=== PATIENT | male | born 1995 | race Caucasian/White ===

== ENCOUNTER 2017-06-15 04:49 | Emergency (ER) | payer SELFPAY ==
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
[2017-06-15 06:26] VITALS: BP 114/59
== END 2017-06-15 06:00 | disposition home or self-care (01) ==
LOC: FB.ED 04:49
DX: M25.532 Pain in left wrist (principal); R51 Headache; R53.83 Other fatigue; Y04.8XXA Assault by other bodily force, initial encounter
CPT/HCPCS: 99282; 99283

== ENCOUNTER 2019-06-01 05:51 | Emergency (ER) | payer OTHER ==
[2019-06-01 06:15] VITALS: BP 158/79; PULSE 64
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
== END 2019-06-01 08:20 | disposition home or self-care (01) ==
LOC: FB.ED 05:51
DX: F43.10 Post-traumatic stress disorder, unspecified (principal); F17.210 Nicotine dependence, cigarettes, uncomplicated
CPT/HCPCS: 99284

== ENCOUNTER 2020-02-17 00:50 | Emergency (ER) | payer SELFPAY ==
[2020-02-17 01:05] VITALS: PULSE 90
[2020-02-17] MEDS ORDERED: Lidocaine 2% Viscous Solution 15 ML Cup PO ONE (01:20)
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
[2020-02-18 00:59] VITALS: BP 144/97
== END 2020-02-17 01:47 | disposition home or self-care (01) ==
LOC: FB.ED 00:50
DX: K02.9 Dental caries, unspecified (principal); F41.9 Anxiety disorder, unspecified; F32.9 Major depressive disorder, single episode, unspecified; Z79.899 Other long term (current) drug therapy
CPT/HCPCS: 99282; A9270

== ENCOUNTER 2020-02-17 23:34 | Emergency (ER) | payer SELFPAY ==
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
[2020-02-18 01:00] VITALS: BP 150/76; PULSE 90
--- NOTE | 2020-02-20 10:57 | CR ---
INDICATION: Left hand pain with swelling. LEFT HAND: Three views of the left hand revealed some deformity at the distal metaphysis of the 5th metacarpal, likely on the basis of a previous boxer's type fracture. Marked soft tissue swelling is noted overlying the dorsum of the hand at the level of the metacarpals-metacarpophalangeal joints. An acute fracture, dislocation, or other definite bone or joint abnormality was not identified. If occult bony abnormality is suspected clinically, reexamination in 10 to 14 days and/or nuclear bone imaging may be helpful. MTDD
== END 2020-02-18 00:42 | disposition home or self-care (01) ==
LOC: FB.ED 23:34
DX: S62.367A Nondisplaced fracture of neck of fifth metacarpal bone, left hand, initial encounter for closed fracture (principal); F41.9 Anxiety disorder, unspecified; F32.9 Major depressive disorder, single episode, unspecified; F17.210 Nicotine dependence, cigarettes, uncomplicated; F17.290 Nicotine dependence, other tobacco product, uncomplicated; Z79.899 Other long term (current) drug therapy; W22.8XXA Striking against or struck by other objects, initial encounter
CPT/HCPCS: 29125; 73130-LT; 99283; 99283-25

== ENCOUNTER 2020-04-09 19:20 | Emergency (ER) | payer SELFPAY ==
[2020-04-09] MEDS ORDERED: Lidocaine 2% Viscous Solution 15 ML Cup PO ONE (19:47)
--- NOTE | 2020-04-09 19:53 | EDM.PDOC ---
ED HPI GENERAL MEDICAL PROBLEM - General Chief Complaint: General Stated Complaint: TOOTH PAIN Time Seen by Provider: 04/09/20 19:30 Source of Information: Reports: Patient History Limitations: Reports: No Limitations - History of Present Illness INITIAL COMMENTS - FREE TEXT/NARRATIVE: Patient presented to the ED because of a chronic dental pain. He was seen in the ED several times in the past and was told to follow up with the dentist but he didn't. 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 Lower L jaw Pain Score (Numeric/FACES): 10 - Related Data Allergies Allergy/AdvReac Type Severity Reaction Status Date / Time No Known Allergies Allergy Verified 04/09/20 19:30 Home Meds: Home Meds Escitalopram [Lexapro] 20 mg PO DAILY 02/17/20 [History] Ibuprofen 800 mg PO TID PRN #30 tablet 02/17/20 [Rx] QUEtiapine [SEROquel] 50 mg PO BEDTIME 02/17/20 [History] hydrOXYzine pamoate [Hydroxyzine Pamoate] 25 mg PO TID PRN 02/17/20 [History] Ibuprofen 800 mg PO TID PRN #30 tablet 04/09/20 [Rx] Lidocaine 2% [Xylocaine 2% Viscous] 2 ml PO ASDIRECTED #60 ml 04/09/20 [Rx] Past Medical History - Past Health History Medical/Surgical History: Denies Medical/Surgical History Musculoskeletal History: Reports: Fracture Other Musculoskeletal History: hx fx L hand Psychiatric History: Reports: Anxiety, Depression, Suicide Attempt, Suicidal Ideation Other Psychiatric History: patient states that he has a lot of anger issues that he hit people. states that he is not from here and just moved here from [place]. - Past Surgical History Other Surgical History Comment: No previous surgeries. Social & Family History - Family History Family Medical History: Noncontributory - Tobacco Use Smoking Status *Q: Current Every Day Smoker Years of Tobacco use: 9 Packs/Tins Daily: 0.4 - Caffeine Use Caffeine Use: Reports: Coffee, Energy Drinks, Soda Other Caffeine Use: BC powder daily - Alcohol Use Days Per Week of Alcohol Use: 5 Number of Drinks Per Day: 5 Total Drinks Per Week: 25 - Recreational Drug Use Recreational Drug Use: No - Living Situation & Occupation Occupation: Employed (States he works at [employer] in [place]) ED ROS GENERAL - Review of Systems Review Of Systems: See Below Constitutional: Reports: No Symptoms HEENT: Reports: No Symptoms Respiratory: Reports: No Symptoms Cardiovascular: Reports: No Symptoms Endocrine: Reports: No Symptoms GI/Abdominal: Reports: No Symptoms : Reports: No Symptoms Musculoskeletal: Reports: No Symptoms Skin: Reports: No Symptoms Neurological: Reports: No Symptoms ED EXAM, GENERAL - Physical Exam Exam: See Below Exam Limited By: No Limitations General Appearance: Alert, No Apparent Distress Eye Exam: Bilateral Eye: PERRL Nose: Normal Inspection, Normal Mucosa Throat/Mouth: Normal Inspection Head: Atraumatic, Normocephalic Neck: Normal Inspection, Supple Respiratory/Chest: No Respiratory Distress Cardiovascular: Normal Peripheral Pulses, Regular Rate, Rhythm, No Edema GI/Abdominal: Normal Bowel Sounds, Soft, Non-Tender Back Exam: Normal Inspection, Full Range of Motion Extremities: Normal Inspection, Normal Range of Motion Neurological: Alert, Oriented, CN II-XII Intact Psychiatric: Normal Affect Course - Vital Signs Text/Narrative:: Viscous lidocaine Tramadol 100 mg po x1 Tylenol 1000 mg po x1 Last Recorded V/S: Last Vital Signs Temp 36.9 C 04/09/20 19:25 Pulse 67 04/09/20 20:17 Resp 18 04/09/20 20:17 BP 139/91 H 04/09/20 20:17 Pulse Ox 98 04/09/20 20:17 - Orders/Labs/Meds Meds: Medications Discontinued Medications Generic Name Dose Route Start Last Admin Trade Name Steph PRN Reason Stop Dose Admin Acetaminophen 1,000 mg 04/09/20 19:59 04/09/20 20:14 Tylenol Extra Strength PO 04/09/20 20:00 1,000 mg ONETIME ONE Administration Ibuprofen 800 mg 04/09/20 19:59 04/09/20 20:10 Motrin PO 04/09/20 20:00 Not Given ONETIME ONE Lidocaine HCl 30 ml 04/09/20 19:47 04/09/20 20:05 Xylocaine 2% Viscous PO 04/09/20 19:48 30 ml ONETIME ONE Administration Tramadol HCl 100 mg 04/09/20 20:06 04/09/20 20:14 Ultram PO 04/09/20 20:07 100 mg ONETIME ONE Administration Departure - Departure Time of Disposition: 20:00 Disposition: Home, Self-Care 01 Condition: Good Clinical Impression: Chronic dental pain, Dental caries - Discharge Information Prescriptions: Ibuprofen 800 mg PO TID PRN #30 tablet PRN Reason: Pain Lidocaine 2% [Xylocaine 2% Viscous] 2 ml PO ASDIRECTED #60 ml Instructions: Tramadol tablets, Benzocaine mouth gel, ointment, solution, or dental paste Referrals: Yessica Estrada MANAGER [facility] [Primary Care Provider] - Forms: ED Department Discharge Additional Instructions: Take ibuprofen 800 mg with Tylenol 1000 mg every 8 hours as needed for pain Viscous lidocaine, apply 1-2 ml every 2 hours as needed for pain Follow up with your dentist this week Sepsis Event Note (ED) - Evaluation Sepsis Screening Result: No Definite Risk
[2020-04-09] MEDS ORDERED: Acetaminophen 500 MG Tab PO ONE (19:59)
[2020-04-09] MEDS ORDERED: Ibuprofen 800 MG Tab PO ONE (19:59)
[2020-04-09] MEDS ORDERED: traMADol 50 MG Tab PO ONE (20:06)
[2020-04-09 20:18] VITALS: BP 139/91; PULSE 67
== END 2020-04-09 20:35 | disposition home or self-care (01) ==
LOC: FB.ED 19:20
DX: K02.9 Dental caries, unspecified (principal); F41.9 Anxiety disorder, unspecified; F32.9 Major depressive disorder, single episode, unspecified; F17.210 Nicotine dependence, cigarettes, uncomplicated; Z79.899 Other long term (current) drug therapy
CPT/HCPCS: 99283; A9270

== ENCOUNTER 2020-06-02 23:13 | Emergency (ER) | payer SELFPAY ==
[2020-06-02] MEDS ORDERED: Lidocaine 2% Viscous Solution 15 ML Cup ONE (23:22)
[2020-06-02] MEDS ORDERED: Lidocaine 2% Viscous Solution 15 ML Cup PO ONE (23:22)
[2020-06-02] MEDS ORDERED: Amoxicillin/Clavulanate K 875-125 MG Tab PO ONE (23:31)
--- NOTE | 2020-06-02 23:39 | EDM.PDOC ---
ED HPI GENERAL MEDICAL PROBLEM - General Stated Complaint: FACE SWELLING Time Seen by Provider: 06/02/20 23:40 Source of Information: Reports: Patient History Limitations: Reports: No Limitations - History of Present Illness INITIAL COMMENTS - FREE TEXT/NARRATIVE: Patient presented to the ED because of dental pain and swelling over the right lower jaw. - Related Data Allergies Allergy/AdvReac Type Severity Reaction Status Date / Time No Known Allergies Allergy Verified 04/09/20 19:30 Home Meds: Home Meds Escitalopram [Lexapro] 20 mg PO DAILY 02/17/20 [History] Ibuprofen 800 mg PO TID PRN #30 tablet 02/17/20 [Rx] QUEtiapine [SEROquel] 50 mg PO BEDTIME 02/17/20 [History] hydrOXYzine pamoate [Hydroxyzine Pamoate] 25 mg PO TID PRN 02/17/20 [History] Ibuprofen 800 mg PO TID PRN #30 tablet 04/09/20 [Rx] Lidocaine 2% [Xylocaine 2% Viscous] 2 ml PO ASDIRECTED #60 ml 04/09/20 [Rx] Amoxicillin/Clavulanate K [Augmentin 875-125 MG] 1 tab PO BID #20 tab 06/02/20 [Rx] Past Medical History - Past Health History Medical/Surgical History: Denies Medical/Surgical History Musculoskeletal History: Reports: Fracture Other Musculoskeletal History: hx fx L hand Psychiatric History: Reports: Anxiety, Depression, Suicide Attempt, Suicidal Ideation Other Psychiatric History: patient states that he has a lot of anger issues that he hit people. states that he is not from here and just moved here from [place]. - Past Surgical History Other Surgical History Comment: No previous surgeries. Social & Family History - Family History Family Medical History: Noncontributory - Caffeine Use Caffeine Use: Reports: Coffee, Energy Drinks, Soda Other Caffeine Use: BC powder daily - Living Situation & Occupation Occupation: Employed (States he works at [employer] in [place]) ED ROS ENT - Review of Systems Review Of Systems: See Below Constitutional: Reports: No Symptoms HEENT: Reports: Dental Pain Respiratory: Reports: No Symptoms Cardiovascular: Reports: No Symptoms Endocrine: Reports: No Symptoms GI/Abdominal: Reports: No Symptoms : Reports: No Symptoms Musculoskeletal: Reports: No Symptoms Skin: Reports: No Symptoms ED EXAM, ENT - Physical Exam Exam: See Below Exam Limited By: No Limitations General Appearance: Alert, No Apparent Distress Eye Exam: Bilateral Eye: PERRL Ears: Normal External Exam, Normal Canal, Hearing Grossly Normal Nose: Normal Inspection, Normal Mucousa, No Blood Mouth/Throat: Normal Inspection, Normal Gums, Dental Pain, Gum Swelling Head: Atraumatic, Normocephalic Neck: Normal Inspection, Supple, Non-Tender, Full Range of Motion Respiratory/Chest: No Respiratory Distress, Lungs Clear, Normal Breath Sounds Cardiovascular: Normal Peripheral Pulses, Regular Rate, Rhythm, No Edema, No Gallop GI/Abdominal: Normal Bowel Sounds, Soft, Non-Tender, No Organomegaly Back: Normal Inspection, Full Range of Motion Extremities: Normal Inspection, Normal Range of Motion, Non-Tender Neurological: Alert, Oriented, CN II-XII Intact, Normal Cognition, Normal Gait Course - Vital Signs Text/Narrative:: alveolar nerve block with 2% lidocaine - Orders/Labs/Meds Meds: Medications Discontinued Medications Generic Name Dose Route Start Last Admin Trade Name Steph PRN Reason Stop Dose Admin Amoxicillin/Clavulanate Potassium 1 tab 06/02/20 23:31 Augmentin 875 Mg/125 Mg PO 06/02/20 23:32 ONETIME ONE Lidocaine HCl Confirm 06/02/20 23:22 Xylocaine 2% Viscous Administered 06/02/20 23:23 Dose 15 ml .ROUTE .STK-MED ONE Departure - Departure Time of Disposition: 23:40 Disposition: Home, Self-Care 01 Condition: Good Clinical Impression: Pain, dental, Dental infection - Discharge Information Prescriptions: Amoxicillin/Clavulanate K [Augmentin 875-125 MG] 1 tab PO BID #20 tab Instructions: Dental Abscess, [id number], Benzocaine mouth gel, ointment, solution, or dental paste Referrals: Yessica Estrada NP [Primary Care Provider] - Additional Instructions: Please read discharge instructions on dental pain Take ibuprofen 800 with tykenol 1000 mg every 8 hours as needed for pain Take augmentin 875 mg twice daily for 10 days Follow up with your dentist as soon as you can
[2020-06-02] MEDS ORDERED: Amoxicillin/Clavulanate K 875-125 MG Tab ONE (23:45)
[2020-06-03 05:41] VITALS: BP 147/78; PULSE 98
== END 2020-06-03 00:05 | disposition home or self-care (01) ==
LOC: FB.ED 23:13
DX: K04.7 Periapical abscess without sinus (principal); F41.9 Anxiety disorder, unspecified; F32.9 Major depressive disorder, single episode, unspecified; Z79.899 Other long term (current) drug therapy
CPT/HCPCS: 64400; 99282; A9270